=== PATIENT | female | born 1985 | race Caucasian/White ===

== ENCOUNTER 2017-02-01 11:05 | Emergency (ER) | payer BC, OTHER ==
[2017-02-01 11:12] VITALS: BP 118/73; PULSE 73; TEMP 98; BMI 27.4
--- NOTE | 2017-02-01 12:13 | PDOC ---
History of Present Illness - General Chief Complaint: Back Pain Stated Complaint: BACK PAIN Time Seen by Provider: 02/01/17 11:31 History Source: Patient Exam Limitations: No Limitations - History of Present Illness Initial Comments: 02/01/17 12:08 31 yr female c/o pain to tailbone after slip and fall yesterday at work. Pt denies head injury or LOC. Pt has no med history did not take any meds for pain. Pt is ambulatory steady gait. Occurred: reports: yesterday Severity: reports: moderate Pain Location: reports: back (tailbone) Past History - Past Medical History Allergies/Adverse Reactions: Allergies Allergy/AdvReac Type Severity Reaction Status Date / Time No Known Allergies Allergy Verified 02/01/17 11:33 Home Medications: Ambulatory Orders NK [No Known Home Medication] 02/01/17 Other medical history: cluster headaches - Immunization History Immunization Up to Date: No - Psycho/Social/Smoking Cessation Hx Anxiety: No Suicidal Ideation: No Smoking History: Never smoked Have you smoked in the past 12 months: No Information on smoking cessation initiated: No Hx Alcohol Use: No Drug/Substance Use Hx: No Substance Use Type: None Trauma Specific PMHX - Complaint Specific PMHX Arthritis: No Back Injury: No Neck Injury: No Hx Sacro Iliac Joint Dysfunction: No Review of Systems - Review of Systems Able to Perform ROS?: Yes Is the patient limited Frisian proficient: No Constitutional: No: Symptoms Reported HEENTM: No: Symptoms Reported Respiratory: No: Symptoms reported Cardiac (ROS): No: Symptoms Reported ABD/GI: No: Symptoms Reported : No: Symptoms Reported Musculoskeletal: Yes: See HPI, Back Pain Integumentary: No: Symptoms Reported Neurological: No: Symptoms reported *Physical Exam - Vital Signs Last Vital Signs Temp Pulse Resp BP Pulse Ox 98 F 73 18 118/73 99 02/01/17 11:09 02/01/17 11:09 02/01/17 11:09 02/01/17 11:09 02/01/17 11:09 - Physical Exam General Appearance: Yes: Nourished, Appropriately Dressed HEENT: positive: EOMI, STONE, TMs Normal, Pharynx Normal Neck: positive: Supple. negative: Tender, Lymphadenopathy (R), Lymphadenopathy (L) Respiratory/Chest: positive: Lungs Clear, Normal Breath Sounds Cardiovascular: positive: Regular Rhythm, Regular Rate Musculoskeletal: positive: Normal Inspection, Decreased Range of Motion (due to pain, worse with sitting down ), Vertebral Tenderness (tailbone). negative: CVA Tenderness, CVA Tenderness (R) Extremity: positive: Normal Capillary Refill, Normal Inspection, Normal Range of Motion Integumentary: positive: Normal Color, Dry, Warm Neurologic: positive: Fully Oriented, Alert, Normal Mood/Affect, Normal Response , Motor Strength 12/03 ED Treatment Course - RADIOLOGY Radiology Studies Ordered: Category Date Time Status COCCYX [RAD] Stat Radiology 02/01/17 11:51 Ordered Medical Decision Making - Medical Decision Making 02/01/17 12:11 cc: lost balance and fell landed on tailbone no head trauma no abd pain no urine or bowel dysfunction will r/o fracture *DC/Admit/Observation/Transfer Diagnosis at time of Disposition: Contusion Qualifiers: Encounter type: initial encounter Contusion area: lower back Qualified Code(s) : S30.0XXA - Contusion of lower back and pelvis, initial encounter - Discharge Dispostion Disposition: HOME Condition at time of disposition: Good - Referrals Referrals: mEily Bess MD [Primary Care Provider] - Jameson Snowden MD [Staff Physician] - - Patient Instructions Additional Instructions: apply ice every 2hrs for 15-20 minutes take motrin (advil, ibuprofen) as directed for pain follow with the orthopedist for follow up this week
== END 2017-02-01 12:47 | disposition home or self-care (01) ==
LOC: JERFT 11:05
DX: S30.0XXA Contusion of lower back and pelvis, initial encounter (principal); W18.39XA Other fall on same level, initial encounter; Y93.9 Activity, unspecified; Y92.9 Unspecified place or not applicable; Y99.0 Civilian activity done for income or pay
CPT/HCPCS: 72220-TC; 84703; 99281-25

== ENCOUNTER 2019-04-11 08:49 | Emergency (ER) | payer BC ==
[2019-04-11 09:16] VITALS: BP 131/80; PULSE 65; TEMP 98.1; BMI 26.6
--- NOTE | 2019-04-11 09:31 | PDOC ---
*Physical Exam - Vital Signs Last Vital Signs Temp Pulse Resp BP Pulse Ox 98.1 F 65 18 131/80 100 04/11/19 09:12 04/11/19 09:12 04/11/19 09:12 04/11/19 09:12 04/11/19 09:12 - Physical Exam Comments: 04/11/19 09:29 The patient was examined by [HOAGN Yip] under my direct supervision. I personally evaluated the patient. I concur with the above findings and the plan of care.
--- NOTE | 2019-04-11 09:31 | PDOC ---
History of Present Illness - General Chief Complaint: Vaginal Bleeding Stated Complaint: VAGINAL BLEEDING/POSSIBLE PREG Time Seen by Provider: 04/11/19 09:27 History Source: Patient - History of Present Illness Timing/Duration: reports: constant, getting worse Past History - Past Medical History Allergies/Adverse Reactions: Allergies Allergy/AdvReac Type Severity Reaction Status Date / Time No Known Allergies Allergy Verified 04/11/19 09:11 Home Medications: Ambulatory Orders NK [No Known Home Medication] 02/01/17 COPD: No - Immunization History Immunization Up to Date: No - Suicide/Smoking/Psychosocial Hx Smoking History: Never smoked Have you smoked in the past 12 months: No Hx Alcohol Use: Yes Drug/Substance Use Hx: No Substance Use Type: None Review of Systems - Review of Systems Constitutional: No: Chills, Fever ABD/GI: Yes: Abdominal cramping. No: Nausea, Vomiting : No: Dysuria, Flank Pain, Hematuria *Physical Exam - Vital Signs Last Vital Signs Temp Pulse Resp BP Pulse Ox 98.1 F 65 18 131/80 100 04/11/19 09:12 04/11/19 09:12 04/11/19 09:12 04/11/19 09:12 04/11/19 09:12 - Physical Exam General Appearance: Yes: Appropriately Dressed. No: Apparent Distress HEENT: positive: Normal Voice Neck: positive: Supple Respiratory/Chest: negative: Respiratory Distress Gastrointestinal/Abdominal: positive: Normal Bowel Sounds, Tender (minimal ttp to lower abd diffusely), Soft. negative: Distended, Guarding, Rebound Musculoskeletal: negative: CVA Tenderness Integumentary: positive: Dry, Warm Neurologic: positive: Fully Oriented, Alert, Normal Mood/Affect Medical Decision Making - Medical Decision Making 04/11/19 09:29 34 yo F, , (s/p elec AB x 1), ~ 4 weeks by dates, p/w worsening vag bleed since yesterday. No clots. Also reports abd cramps, no dysuria, f/c. see exam 1st trimester bleed R/o ectopic vs spon AB vs vag bleed in nl preg -US -UA -beta -T&S 04/11/19 11:02 S/p US, pt /c/o feeling dizzy, as if she were going to pass out. No CP or SOB. Pt taken to a stretcher immediately w/ IVF in progress. US/labs still pending at this time 04/11/19 11:21 US w/ small R ovarian cyst, no adnexal pathology otherwise and no IUP 04/11/19 12:23 Beta < 1 with no evidence of on ultrasound. Upreg neg. This was discussed w/ pt who states she had multiple home tests that were positive. Told today that most likely those tests were false positive as our workup here does not reveal that she was ever . Patient states her period was due a week ago and does get abdominal cramping with her menses. Will dc to take motrin prn and f/u with her [facility] *DC/Admit/Observation/Transfer Diagnosis at time of Disposition: Vaginal bleeding - Discharge Dispostion Disposition: HOME Condition at time of disposition: Good - Referrals Referrals: Emily Bess MD [Primary Care Provider] - - Patient Instructions Additional Instructions: Our blood work, urine and ultrasound does not reveal evidence that you were , as was discussed today. Your current vaginal bleed is most likely your menstruation. Take Motrin for pain as needed and follow-up with your [facility] - Post Discharge Activity Forms/Work/School Notes: Back to Work
[2019-04-11] MEDS ORDERED: SODIUM CHLORIDE 1,000 ML IV STA (11:02)
[2019-04-11] MEDS ORDERED: IBUPROFEN 400 MG TABLET (FP) PO ONE ×2 (11:47→11:54)
[2019-04-11 12:29] LABS: URINE APPEARANCE BLOODY; URINE COLOR RED
[2019-04-11 12:33] LABS: URINE RBC >100 /hpf (0-4)
[2019-04-11 12:35] LABS: EPI CELLS OCCASIONAL /HPF; URINE BACTERIA MODERATE /hpf (NEGATIVE)
== END 2019-04-11 12:37 | disposition home or self-care (01) ==
LOC: JER 08:49
PROC: 3E0337Z Introduction of Electrolytic and Water Balance Substance into Peripheral Vein, Percutaneous Approach (ICD-10-PCS; principal; 2019-04-11)
DX: N93.9 Abnormal uterine and vaginal bleeding, unspecified (principal)
CPT/HCPCS: 36415; 76817-TC; 81003; 84702; 84703; 86850; 86900; 86901; 87086; 99283-25; J7030

== ENCOUNTER 2020-06-17 12:25 | Emergency (ER) | payer BC ==
[2020-06-17] MEDS ORDERED: ACETAMINOPHEN 325 MG TABLET (FP) PO ONE (12:31)
[2020-06-17 12:32] VITALS: BP 143/86; PULSE 69; TEMP 98.7; BMI 28.3
[2020-06-17] MEDS ORDERED: ACETAMINOPHEN 325 MG TABLET (FP) ONE (12:44)
[2020-06-17 13:09] LABS: BASO % 1.1 % (0-2.0); EOS % 3.4 % (0-4.5); HEMATOCRIT 38.1 % (32.4-45.2); HEMOGLOBIN 12.4 GM/dL (10.7-15.3); MCHC 32.4 g/dl (32.0-36.0); MEAN CELL VOLUME 89.5 fl (80-96); MEAN PLT VOLUME 8.2 fl (7.5-11.1); MONO % 7.6 % (3.8-10.2); NEUT % 56.9 % (42.8-82.8); PLATELET COUNT 365 K/MM3 (134-434); RBC 4.26 M/mm3 (3.60-5.2); WHITE BLOOD COUNT 10.3 K/mm3 (4.0-10.0)
[2020-06-17 13:16] LABS: INR 1.12 (0.83-1.09); PROTHROMBIN TIME (PATIENT) 13.7 SEC (9.7-13.0)
[2020-06-17 13:18] LABS: ACTIVATED PTT 30.7 SECONDS (25.2-36.5)
[2020-06-17 13:28] LABS: CHLORIDE 109 mmol/L (98-107); POTASSIUM 4.2 mmol/L (3.5-5.1); SODIUM 140 mmol/L (136-145)
[2020-06-17 13:30] LABS: ALBUMIN 3.7 g/dl (3.4-5.0); ANION GAP 6 MMOL/L (8-16); BLOOD UREA NITROGEN 14.6 mg/dL (7-18); CALCIUM 8.7 mg/dL (8.5-10.1); CO2 25 mmol/L (21-32); GLUCOSE,RANDOM 87 mg/dL (74-106)
[2020-06-17 13:33] LABS: SGPT/ALT 18 U/L (13-61)
[2020-06-17 13:34] LABS: CREATININE 0.9 mg/dL (0.55-1.3); SGOT/AST 15 U/L (15-37)
[2020-06-17 13:35] LABS: ALK PHOS 88 U/L (45-117); BILIRUBIN,TOTAL 0.6 mg/dL (0.2-1); TOT PROT 7.6 g/dl (6.4-8.2)
[2020-06-17] MEDS ORDERED: KETOROLAC TROMETHAMINE 60 MG/2 ML VIAL IM ONE (13:38)
[2020-06-17] MEDS ORDERED: KETOROLAC TROMETHAMINE 60 MG/2 ML VIAL ONE (13:44)
[2020-06-17 14:16] LABS: EPI CELLS >36 /uL (0-25.1); HYALINE CASTS 5 /uL (0-3.1); PH,URINE 8.5 (5.0-8.0); URINE APPEARANCE TURBID; URINE BACTERIA 65 /uL (0-1359); URINE BILIRUBIN 1+ (NEGATIVE); URINE COLOR RED; URINE GLUCOSE (UA) NEGATIVE (NEGATIVE); URINE KETONE NEGATIVE (NEGATIVE); URINE LEUK ESTERASE 1+ (NEGATIVE); URINE NITRITE NEGATIVE (NEGATIVE); URINE PROTEIN 2+ (NEGATIVE); URINE RBC 19601 /uL (0-23.9); URINE WBC 119 /uL (0-25.8)
[2020-06-17 14:17] LABS: HCG,QUALITATIVE URINE Negative
== END 2020-06-17 14:14 | disposition home or self-care (01) ==
LOC: JER 12:25
PROC: 3E0233Z Introduction of Anti-inflammatory into Muscle, Percutaneous Approach (ICD-10-PCS; principal; 2020-06-17)
DX: N93.9 Abnormal uterine and vaginal bleeding, unspecified (principal)
CPT/HCPCS: 36415; 80053; 81003; 84702; 84703; 85025; 85610; 85730; 86850; 86900; 86901; 87086; 99284-25